=== PATIENT | male | born 1965 | race Caucasian/White ===

== ENCOUNTER 2018-02-16 07:50 | Day surgery (SDC) | payer OTHER, BC ==
[~2018-02-16] VITALS: Ht 185.4 cm; Wt 113.5 kg
[~2018-02-16 07:50] MED LIST: ALBU90OI6 INH; AMLO10 PO; AMLO5 PO; BACL10 PO; CICLODAN 0.77%544 GM TP; CICLODAN90 GM TP; DOCU100 PO; EPIN.3I IM; EPIPEN 2-P0.3 MG/0.3 IM; HYDACE10B PO; Lyrica75 MG PO; NAPR550 PO; Norco 10-325 T1 EACH PO; PREG150 PO; ZESTRIL40 MG PO; Zestril30 MG PO
== END 2018-02-16 09:57 | disposition home or self-care (01) ==
LOC: ORSCSDS 07:50
PROVIDERS: Surgery
PROC: 0DJD8ZZ Inspection of Lower Intestinal Tract, Via Natural or Artificial Opening Endoscopic (ICD-10-PCS; principal; 2018-02-16 09:00)
DX: Z12.11 Encounter for screening for malignant neoplasm of colon (principal); K64.8 Other hemorrhoids; F17.210 Nicotine dependence, cigarettes, uncomplicated; I10 Essential (primary) hypertension; E78.5 Hyperlipidemia, unspecified; Z79.899 Other long term (current) drug therapy
CPT/HCPCS: J0330; J1980; J2405; J7120

== ENCOUNTER → 2018-06-08 | Outpatient (CLI) | payer OTHER, BC | LOC: LAB SHORT 16:39 → LAB 16:39 | DX: S50.912A Unspecified superficial injury of left forearm, initial encounter (principal); S50.911A Unspecified superficial injury of right forearm, initial encounter; R21 Rash and other nonspecific skin eruption; L74.513 Primary focal hyperhidrosis, soles; L91.8 Other hypertrophic disorders of the skin; L81.4 Other melanin hyperpigmentation; D22.5 Melanocytic nevi of trunk; L81.8 Other specified disorders of pigmentation; D18.01 Hemangioma of skin and subcutaneous tissue | CPT/HCPCS: 87070; 87147; 87205 ==

== ENCOUNTER 2019-02-10 11:16 | Emergency (ER) | payer OTHER, BC ==
[~2019-02-10] VITALS: Ht 185.4 cm; Wt 113.4 kg
[2019-02-10] MEDS ORDERED: AMLODIPINE BESY10 MG PO (11:37)
[2019-02-10] MEDS ORDERED: ASPI325 PO (11:39)
[2019-02-10] MEDS ORDERED: VIT C (11:39)
[2019-02-10] MEDS ORDERED: Vitamin B-121000 MCG PO (11:39)
[2019-02-10 11:50] LABS: BASOPHILS ABSOLUTE AUTO 0.05 K/mm3 (0.00-0.23); BASOPHILS PERCENT AUTO 1 % (0-2); EOSINOPHILS PERCENT AUTO 5 % (0-6); Hematocrit 43.6 % (37.0-53.0); Hemoglobin 14.4 g/dL (13.5-17.5); IMMATURE GRAN ABSOLUTE AUTO 0.03 K/mm3 (0.00-0.10); IMMATURE GRAN PERCENT AUTO 0 % (0-1); LYMPHOCYTES ABSOLUTE AUTO 2.03 K/mm3 (0.84-5.20); LYMPHOCYTES PERCENT AUTO 25 % (21-46); MONOCYTES ABSOLUTE AUTO 0.75 K/mm3 (0.16-1.47); MONOCYTES PERCENT AUTO 9 % (4-13); Mean Corpuscular HGB 30.5 pg (26.0-34.0); Mean Corpuscular Volume 92 fL (80-100); NEUTROPHILS ABSOLUTE AUTO 4.83 K/mm3 (1.96-9.15); NEUTROPHILS PERCENT AUTO 60 % (41-73); Platelet Count 299 K/mm3 (150-400); RDW Coefficient Variation 13.3 % (11.7-14.2); RDW Standard Deviation 45.8 fL (35.1-46.3); Red Blood Cell Count 4.72 M/mm3 (4.30-5.90); White Blood Cell Count 8.09 K/mm3 (4.00-11.30)
[2019-02-10 12:08] LABS: Alanine Aminotransfer (ALT/SGP 40 U/L (12-78); Albumin/Globulin Ratio 1.2 (0.8-1.8); Alk Phos 48 U/L (50-136); Anion Gap 7 mmol/L (6-16); Aspartate Aminotrans (AST/SGOT 24 U/L (12-37); Bilirubin, Total 0.4 mg/dL (0.1-1.0); Blood Urea Nitrogen 17 mg/dL (8-24); Bun/Creatinine Ratio 19.1 (12.0-20.0); CO2, Blood 26 mmol/L (21-32); Calcium, Blood 8.9 mg/dL (8.5-10.1); Chloride, Blood 107 mmol/L (98-108); Creatinine, Blood 0.89 mg/dL (0.60-1.20); Globulin, Blood 3.3 g/dL (2.2-4.0); Glomerular Filtration Rate >60 (60-); Glucose, Blood 88 mg/dL (70-99); Sodium, Blood 140 mmol/L (136-145); Total Protein, Blood 7.3 g/dL (6.4-8.2); Troponin I <0.015 ng/mL (0.000-0.040)
[2019-02-11] MEDS ORDERED: C Complex1000 MG PO (14:56)
[2019-02-11] MEDS ORDERED: ATOR20 PO (14:57)
[2019-02-11] MEDS ORDERED: CLOP75 PO (14:59)
== END 2019-02-10 13:16 | disposition home or self-care (01) ==
LOC: ER 11:16
PROVIDERS: Emergency Medicine
DX: G45.9 Transient cerebral ischemic attack, unspecified (principal); I10 Essential (primary) hypertension; F17.200 Nicotine dependence, unspecified, uncomplicated; Z91.030 Bee allergy status; Z79.82 Long term (current) use of aspirin; Z79.899 Other long term (current) drug therapy
CPT/HCPCS: 70450; 80053; 84484; 85025; 93005; 93010; 99284-25

== ENCOUNTER 2019-02-10 18:33 | Inpatient (IN) | payer OTHER, BC ==
[~2019-02-10] VITALS: Ht 185.4 cm; Wt 121.2 kg
[~2019-02-10 18:33] MED LIST changes: +AMLODIPINE BESY10 MG PO; +ASPI325 PO; +VIT C; +Vitamin B-121000 MCG PO
[2019-02-10 20:00] LABS: International Normalized Ratio 0.93; Prothrombin Time Results 9.9 Sec (9.7-11.5)
[2019-02-11 05:40] LABS: Very Low Density Lipoprot Chol 34 mg/dL (6-32)
[2019-02-11 05:41] LABS: CHOL/HDL RATIO 5.5; Cholesterol 182 mg/dL (50-200); HDL Cholesterol 33 mg/dL (>39); LDL/HDL RATIO 3.5; Low Density Lipoprotein Chol 115 mg/dL (0-110); Triglycerides 170 mg/dL (30-160)
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
[2019-02-11] MEDS ORDERED: C Complex1000 MG PO (14:56)
[2019-02-11] MEDS ORDERED: ATOR20 PO (14:57)
[2019-02-11] MEDS ORDERED: CLOP75 PO (14:59)
--- NOTE | 2019-02-11 15:38 | NUR ---
DISCHARGE DISCHARGE MEDICAIONS AND INSTRUCTIONS EXPLAINED TO PATIENT. PATIENT STATED UNDERSTANDING. FOLLOW UP WITH PCP SCHEDULED. IV REMOVED WITHOUT DIFFICULTY. BELONGINGS WITH PATIENT. PATIENT AMBULATED TO PRIVATE VEHICLE.
== END 2019-02-11 15:40 | disposition home or self-care (01) | DRG 65 ==
LOC: ER 18:33 → MEDS 21:54
PROVIDERS: Emergency Medicine; ADMIT Internal Medicine
DX: I63.81 Other cerebral infarction due to occlusion or stenosis of small artery (principal); G81.94 Hemiplegia, unspecified affecting left nondominant side; R29.810 Facial weakness; I10 Essential (primary) hypertension; E78.5 Hyperlipidemia, unspecified; F17.210 Nicotine dependence, cigarettes, uncomplicated; Z79.82 Long term (current) use of aspirin; Z79.899 Other long term (current) drug therapy
CPT/HCPCS: 36415; 70496; 70498; 70551; 80061; 82947; 83036; 84484; 85610; 85730; 87070; 87081; 87147; 93005; 93010; 93306; 97110; 97161; 97165; 97530; 99285-25; G0378; Q9967

== ENCOUNTER → 2019-02-23 | Outpatient (CLI) | payer OTHER, BC ==
[~2019-02-23] MED LIST changes: +ATOR20 PO; +C Complex1000 MG PO; +CLOP75 PO
== END | disposition home or self-care (01) ==
LOC: LAB 17:49 → LAB SHORT 17:49
DX: L01.00 Impetigo, unspecified (principal)
CPT/HCPCS: 87070; 87077; 87147; 87186; 87205

== ENCOUNTER 2019-04-20 07:30 | Day surgery (SDC) | payer OTHER ==
[~2019-04-20] VITALS: Ht 185.4 cm; Wt 116.0 kg
[~2019-04-20 07:30] MED LIST changes: +NAPR500EC PO
== END 2019-04-20 22:41 | disposition home or self-care (01) ==
LOC: MHTC 07:30
DX: I48.0 Paroxysmal atrial fibrillation (principal); I63.9 Cerebral infarction, unspecified; E78.5 Hyperlipidemia, unspecified; I10 Essential (primary) hypertension; Z79.899 Other long term (current) drug therapy; Z79.82 Long term (current) use of aspirin; Z87.891 Personal history of nicotine dependence
CPT/HCPCS: 33285; C1764

== ENCOUNTER 2019-06-24 06:20 | Day surgery (SDC) | payer OTHER ==
[~2019-06-24] VITALS: Ht 185.4 cm; Wt 116.7 kg
--- NOTE | 2019-06-24 17:53 | NUR ---
PCU ADMIT/DAYSHIFT SUMMARY PATIENT ARRIVED FROM [facility]ART [facility]ENTER. ALERT AND ORIENTED TO X4. RESP E/U ON ROOM AIR. VSS. LEFT CHEST DUAL CHAMBER PACEMAKER NOTED WITH PRESSURE DRESSING IN PLACE 06/23 PER JOANN - NO S/SX OF BLEEDING NOTED. LEFT ARM SLING APPLIED. PATIENT INDEPENDENT IN ROOM WITH MINIMAL ASSISTANCE DUE TO LEFT ARM RESTRICTIONS. NO ACUTE DISTRESS NOTED. HEART RATE PACED 60'S. WILL CONTINUE TO MONITOR AND REPORT TO NOC SHIFT RN.
--- NOTE | 2019-06-25 06:02 | NUR ---
SHIFT SUMMARY PT A&O; PLEASANT & COMPLIANT W/ CARE; C/O 5 OF 10 L CHEST WALL PAIN AT OP SITE; MEDICATED PER EMAR; VSS; O2 SATS >94 ON RA ON SECOND DIGIT ON L HAND; LUNG SOUNDS CLEAR T/O; SCANT AMOUNT DRIED BLOOD NOTED ON DRESSING AT OP SITE; NO CHANGE T/O SHIFT; ARM SLING IN PLACE; PT EDUCATED ON NO USING ARM; CALL LIGHT IN REACH; BED IN LOWEST POSITION; WILL CONTIUE TO MONITOR CLOSELY UNTIL HAND OFF TO DAY SHIFT RN.
--- NOTE | 2019-06-25 11:39 | NUR ---
PCU DISCHARGE SUMMARY PATIENT ALERT AND ORIENTED X4; INDEPENDENT IN ROOM. NO S/SX OF INFECTION OR BLEEDING AT PACER SITE. RESP E/U ON ROOM AIR. 100% PACED AT 60. INTEROGATION COMPLETED; XRAY COMPLETED; MD GAGE IN TO SEE PATIENT - DISCHARGED. PATIENT AMBULATED OUT OF UNIT WITH NO ACUTE DISTRESS NOTED. DISCHARGE INFORMATION GIVEN. LEFT ARM IN SLING. IV REMOVED WITH CATHETER INTACT.
== END 2019-06-25 11:36 | disposition home or self-care (01) ==
LOC: MHTC 06:20 → PCU 10:30 → MHTC 06-25 11:36
DX: I49.5 Sick sinus syndrome (principal); E78.5 Hyperlipidemia, unspecified; I10 Essential (primary) hypertension; Z91.030 Bee allergy status; F17.220 Nicotine dependence, chewing tobacco, uncomplicated; I44.0 Atrioventricular block, first degree; I45.10 Unspecified right bundle-branch block; I63.9 Cerebral infarction, unspecified; Z79.899 Other long term (current) drug therapy; Z79.02 Long term (current) use of antithrombotics/antiplatelets
CPT/HCPCS: 33208; 71045; 71046; 76937; 87081; 93005; 93010; 99152; 99153; A9270; A9270-GY; C1785; C1894; C1898; J0690; J1644; J2250; J3010; J3370; J7030; J7040; J7050